=== PATIENT | male | born 1995 | race Caucasian/White ===

== ENCOUNTER 2017-10-02 04:04 | Emergency (ER) | payer BC ==
[~2017-10-02] VITALS: Ht 175.3 cm; Wt 70.0 kg
[2017-10-02] MEDS ORDERED: CETI10CA3 (04:10)
[2017-10-02] MEDS ORDERED: VENTAER INH (04:22)
--- NOTE | 2017-10-02 04:22 | PD ---
HPI Chief Complaint: Respiratory Symptoms Time Seen by Provider: 04:15 Travel History International Travel<30 days: No Contact w/Intl Traveler<30days: No Traveled to known affect area: No History of Present Illness HPI 22-year-old male complains of wheezing and shortness of breath. Patient has history of asthma. Patient states that the symptoms started yesterday evening. Patient denies any coughing congestion. Patient denies any fever chills. Patient does not have an inhaler at home. PFSH Past Medical History Asthma: Yes Past Surgical History Other Surgery: Yes (SKIN GRAFT ) Social History Alcohol Use: Yes Tobacco Use: Yes Substance Use: No Allergies-Medications (Allergen,Severity, Reaction): Coded Allergies: clindamycin (Verified Allergy, Unknown, 10/02/17) Reported Meds & Prescriptions Reported Meds & Active Scripts Active Reported Zyrtec (Cetirizine HCl) 10 Mg Capsule Review of Systems General / Constitutional: No: Fever Eyes: No: Visual changes HENT: No: Headaches Cardiovascular: No: Chest Pain or Discomfort Respiratory: Positive: Shortness of Breath, Wheezing Gastrointestinal: No: Abdominal Pain Genitourinary: No: Dysuria Musculoskeletal: No: Pain Skin: No Rash Neurologic: No: Weakness Psychiatric: No: Depression Endocrine: No: Polydipsia Hematologic/Lymphatic: No: Easy Bruising Physical Exam Narrative GENERAL: Well-nourished, well-developed patient. SKIN: Focused skin assessment warm/dry. HEAD: Normocephalic. EYES: No scleral icterus. No injection or drainage. NECK: Supple, trachea midline. No JVD or lymphadenopathy. CARDIOVASCULAR: Regular rate and rhythm without murmurs, gallops, or rubs. RESPIRATORY: Breath sounds equal bilaterally. No accessory muscle use. Mild expiratory wheezes bilaterally. No rhonchi. GASTROINTESTINAL: Abdomen soft, non-tender, nondistended. MUSCULOSKELETAL: No cyanosis, or edema. BACK: Nontender without obvious deformity. No CVA tenderness. Neurologic exam normal. MDM Medical Decision Making Medical Screen Exam Complete: Yes Emergency Medical Condition: Yes Differential Diagnosis Differential diagnosis including acute exacerbation of asthma, bronchitis, pneumonia. Narrative Course 22-year-old male with wheezing and shortness of breath. History of asthma. Albuterol Atrovent unit dose treatment 1. Diagnosis Primary Impression: Acute asthma exacerbation Qualified Codes: J45.21 - Mild intermittent asthma with (acute) exacerbation Patient Instructions: General Instructions Additional Instructions: Albuterol inhaler as directed. Follow-up with personal physician. Return if worse. Med/Other Pt SpecificInfo: Prescription(s) given Scripts Albuterol 18 GM Inh (Ventolin Hfa 18 GM Inh) 90 Mcg/Act Aer 2 PUFF INH Q4-6H Y for SHORTNESS OF BREATH, #1 INHALER 0 Refills Prov: Charlie Mcclellan MD 10/02/17 Disposition: 01 DISCHARGE HOME Condition: Stable Charlie Mcclellan MD Oct 02, 2017 04:22
[2017-10-02] MEDS ORDERED: RESP: ALBUTEROL 2.5 MG/IPRATROPIUM 0.5 MG NEB (SCH) INH ONE (04:30)
== END 2017-10-02 05:11 | disposition home or self-care (01) ==
LOC: NEPE 04:04
DX: J45.21 Mild intermittent asthma with (acute) exacerbation (principal); Z72.0 Tobacco use
CPT/HCPCS: 94664; 99283

== ENCOUNTER 2018-01-19 01:01 | Emergency (ER) | payer BC ==
[~2018-01-19 01:01] MED LIST: CETI10CA3; VENTAER INH
[2018-01-19 01:05] VITALS: BP 120/62; PULSE 73; RESP 16; TEMP 97.4; O2SAT 97
[2018-01-19] MEDS ORDERED: SODIUM CHLOR 0.9% 1000 ML INJ 1,000 ML IV ONE (01:15)
[2018-01-19] MEDS ORDERED: SODIUM CHLORIDE 0.9% FLUSH 10 ML FLUSH IVF PRN (01:15)
[2018-01-19] MEDS ORDERED: methylPREDNISolone SOD SUCC 125 MG/2 ML VIAL IV PUSH ONE (01:15)
--- NOTE | 2018-01-19 01:19 | PD ---
HPI Chief Complaint: Respiratory Symptoms Time Seen by Provider: 01:14 Travel History International Travel<30 days: No Contact w/Intl Traveler<30days: No Traveled to known affect area: No History of Present Illness HPI Patient comes in complaining of onset of runny nose/dry cough/sore throat/body aches generalized/as well as some wheezing that has been audible, since this Friday. Patient denies any alleviating or aggravating factors. Patient denies any associated factors such as fever, rash, headache, neck pain, back pain, chest pain, abdominal pain or flank pain. Patient also denies any dysuria, frequency, urgency. Patient states allergy to clindamycin he describes nausea and vomiting patient was advised that it is not a true allergy but an adverse effect of the medication Past medical history is only significant for asthma Patient denies any significant surgical history Patient denies any smoking history PFSH Past Medical History Asthma: Yes Diminished Hearing: No Past Surgical History Surgical History: No Previous Surgery Other Surgery: Yes (SKIN GRAFT ) Social History Alcohol Use: Yes Tobacco Use: Yes (VAPES) Substance Use: Yes (MARIJUANA ) Allergies-Medications (Allergen,Severity, Reaction): Coded Allergies: clindamycin (Verified Allergy, Unknown, 10/02/17) Reported Meds & Prescriptions Reported Meds & Active Scripts Active Review of Systems General / Constitutional: No: Fever Eyes: No: Visual changes HENT: No: Headaches Cardiovascular: No: Chest Pain or Discomfort Respiratory: Positive: Cough, Wheezing Gastrointestinal: No: Abdominal Pain Genitourinary: No: Dysuria Musculoskeletal: No: Pain Skin: No Rash Neurologic: No: Weakness Psychiatric: No: Depression Endocrine: No: Polydipsia Hematologic/Lymphatic: No: Easy Bruising Physical Exam Narrative GENERAL: SKIN: Warm and dry. HEAD: Atraumatic. Normocephalic. EYES: Pupils equal and round. No scleral icterus. No injection or drainage. ENT: No nasal bleeding or discharge. Mucous membranes pink and moist. NECK: Trachea midline. No JVD. CARDIOVASCULAR: Regular rate and rhythm. RESPIRATORY: No accessory muscle use. Mild bilateral wheezing. Breath sounds equal bilaterally. No tachypnea, no tripoding, and relatively good tidal volume GASTROINTESTINAL: Abdomen soft, non-tender, nondistended. MUSCULOSKELETAL: Extremities without clubbing, cyanosis, or edema. No obvious deformities. NEUROLOGICAL: Awake and alert. No obvious cranial nerve deficits. Motor grossly within normal limits. Five out of 5 muscle strength in the arms and legs. Normal speech. PSYCHIATRIC: Appropriate mood and affect; insight and judgment normal. Data Data Last Documented VS Vital Signs Date Time Temp Pulse Resp B/P (MAP) Pulse Ox O2 Delivery O2 Flow Rate FiO2 01/19/18 01:20 20 98 Room Air 01/19/18 01:05 97.4 73 120/62 (81) Orders Orders Influenzae A/B Antigen (01/19/18 01:14) Iv Access Insert/Monitor (01/19/18 01:14) Ecg Monitoring (01/19/18 01:14) Oximetry (01/19/18 01:14) Chest, Pa & Lat (01/19/18 01:14) Sodium Chloride 0.9% Flush (Ns Flush) (01/19/18 01:15) Methylprednisolone So Succ Inj (Solumedr (01/19/18 01:15) Albuterol-Ipratropium Neb (Duoneb Neb) (01/19/18 01:15) Sodium Chlor 0.9% 1000 Ml Inj (Ns 1000 M (01/19/18 01:15) MDM Medical Decision Making Medical Screen Exam Complete: Yes Emergency Medical Condition: Yes Medical Record Reviewed: Yes Differential Diagnosis Bronchitis versus pneumonia versus asthma exacerbation Narrative Course Chest x-ray does not show any evidence of consolidation however it does show hyperinflation. Flu test is negative Diagnosis Primary Impression: Bronchitis with bronchospasm Patient Instructions: Acute Bronchitis (ED), Bronchospasm (ED), General Instructions Scripts Azithromycin (Zithromax Z-Last) 250 Mg Dspk 250 MG PO DIRECTED for Infection, #1 DSPK 0 Refills 500 MG (2 tabs) day 1, then 1 tab days 2-5. Prov: Howard Washington MD 01/19/18 Methylprednisolone Dosepak (Medrol Dosepak) 4 Mg Dspk 4 MG PO DIRECTED, #1 DSPK 0 Refills Per Pharmacist direction Prov: Howard Washington MD 01/19/18 Albuterol 6.7 GM Inh (Proventil Hfa 6.7 GM Inh) 90 Mcg/Act Aer 2 PUFF INH Q4-6H Y for SHORTNESS OF BREATH, #1 INHALER 0 Refills Prov: Howard Washington MD 01/19/18 Disposition: 01 DISCHARGE HOME Condition: Stable Howard Washington MD Jan 19, 2018 01:19
[2018-01-19 01:20] VITALS: RESP 20; O2SAT 98
--- NOTE | 2018-01-19 01:39 | RADRPT ---
EXAM DATE/TIME: 01/19/2018 01:23 [facility] COMPARISON: No previous studies available for comparison. INDICATIONS : Short of breath. MEDICAL HISTORY : None. SURGICAL HISTORY : None. ENCOUNTER: Initial ACUITY: 1 day PAIN SCORE: 0/10 LOCATION: Bilateral chest FINDINGS: PA and lateral views of the chest demonstrate the lungs to be symmetrically hyperinflated without shaniqua dence of mass, infiltrate or effusion. The cardiomediastinal contours are unremarkable. Osseous str uctures are intact. CONCLUSION: 1. Hyperinflation characteristic of a deep inspiratory effort. 2. Otherwise, no acute cardiopulmonary process. Lungs are clear. Thanh Crisostomo MD on January 19, 2018 at 1:36 Board Certified Radiologist. This report was verified electronically.
[2018-01-19] MEDS: RESP: ALBUTEROL 2.5 MG/IPRATROPIUM 0.5 MG NEB (SCH) INH (01:53)
[2018-01-19] MEDS ORDERED: ALBU6.7H INH (01:57)
[2018-01-19] MEDS ORDERED: MEDR4PAK PO (01:57)
[2018-01-19] MEDS ORDERED: ZITHTAB PO (01:57)
== END 2018-01-19 03:44 | disposition home or self-care (01) ==
LOC: NEPE 01:01
DX: J40 Bronchitis, not specified as acute or chronic (principal); F12.90 Cannabis use, unspecified, uncomplicated; Z72.0 Tobacco use
CPT/HCPCS: 71046; 87804; 94640; 94664; 96361; 96374; 99284; J2930; J7030